=== PATIENT | male | born 1965 | race Caucasian/White ===

== ENCOUNTER 2017-05-03 13:48 | Inpatient (IN) | payer SELFPAY ==
[2017-05-03] VITALS (16 sets, daily range): BP systolic 117–145; BP diastolic 78–98; PULSE 59–85; RESP 14–22; O2SAT 93–100
[~2017-05-03] VITALS: Ht 175.3 cm; Wt 75.3 kg
--- NOTE | 2017-05-03 13:39 | ED.REPORT ---
HPI-Chest Pain 40 and Over Date of Service May 03, 2017 ED Provider: Bobby Ryder Patient is a 52 year old male with a hx of BPH who presents to the ED via EMS complaining of L sided chest pressure onset one hour prior to arrival while playing video games. Patient reports having sporadic shoulder and chest pain for the past month but today it did not get any better. Associated symptoms include SOB, nausea, weakness, shakes, and diaphoresis. He denies vomiting, bleeding, or any other symptoms. He received 8 morphine, 324 aspirin, and 3 nitro en route. Per records, pt has no known drug allergies. He takes Gabapentin for back pain. He has never had chest pain like this before. Nursing Notes Stated Complaint: STEMI Nursing Notes Reviewed: Yes General Time Seen by MD: 13:46 Chief Complaint Chest pressure Hx Obtained From: Patient, EMS Arrived By: Ambulance Sudden in Onset?: Yes Onset Occurred: 1 - 4 hours ago Symptom Duration: Since onset Similar Sx Previous: No Risk Factors )( CAD Risk Stratification SmokingNo Diabetes mellitus, No Hyperlipidemia, No Hypertension, No Known CAD Risk factors reviewed )( TAD Risk Stratification No Hypertension, No Risk factors reviewed )( PE Risk Stratification No , No , No Previous DVT, No Previous PE Risk factors reviewed Past Medical History Past Medical History Chronic back pain BPH Past Surgical History None reported Family History paternal hx heart problems Smoking History Current Every Day Smoker Social History Alcohol Use: Denies alcohol use Drug Use: Denies drug use Ambulatory Status Independent Review of Systems Respiratory: Reports: Shortness of breath Cardiovascular: Reports: Chest pain GI: Reports: Nausea, Denies: Vomiting Skin: Reports Diaphoresis Neurologic: Reports: Shaking, Weakness Complete sys rev & neg: except as marked. Hematologic: Denies Bleeding Physical Exam Initial Vital Signs see nurses notes Initial VS: Reviewed Head / Eyes: Atraumatic, Normocephalic Neurologic: Alert, Oriented, Nonfocal General/Constitutional: Awake, Alert Distress / Hydration: Positive: Distress moderate Respiratory / Chest: Atraumatic, Breath sounds NL, Breath sounds = bilat, No respiratory distress Cardiovascular: Heart rate NL Abdomen: Atraumatic, Soft, Non-tender Neck: Full range of motion, No JVD Lower Extremity / Pelvis / MS: No edema Skin: Warm Color / Condition: Positive: Diaphoresis present Interpretation & Diagnostics ECG Interpretation ECG Interpretation: STEMI rate 64 inferior,lateral, and posterior involvement Time: 13:52 Interpreted by: ED physician ECG Interpretation: 2nd EKG R sided, no ST elevation in V4R Time: 13:52 Interpreted by: ED physician Rhythm Strip Interpretation : Rhythm Strip Interpretation: Nonsustained ventricular tachycardia Rhythm Strip Interpretation: Interpreted by me Re-Eval/Medical Decision Med Decision/Clinical Course Patient care was initiated much prior to arrival as paramedics from an outside town notified us of a probable ST elevation CT. Physician, nursing, and ancillary staff were made available at the bedside prior to arrival via a stat medical call. Cardiology was paged in the field EKG was reviewed by the ER physician prior to patient arrival and confirmed the diagnosis of ST elevation CT. Upon arrival, the patient is brought to a monitored room, IV and boiler blower established. IV heparin is given, confirmatory EKGs are taken. Cardiology is swiftly to the bedside and will take the patient emergently to the [facility]. Time of Eval: 13:50 Re-Evaluation/Progress Note: Discussed plan for admission and medical laboratory scientist. Patient understands and agrees with plan. All questions addressed at this time. Consultation : Referral / Consult Name: Glen Perez MD Consulted With: Cardiology Call Returned at: 13:54 Tile Layer Drainage: Will see patient, Agrees with eval, Agrees with plan, Requested medical laboratory scientist Note: Estephanie visited pt in the ED. Activated medical laboratory scientist. Counseled Regarding: Diagnosis, Need for admission Discharge & Departure Primary Impression: STEMI (ST elevation myocardial infarction) Involved coronary artery: unspecified coronary artery Qualified Code: I21.3 - ST elevation (STEMI) myocardial infarction of unspecified site Additional Impression: Ventricular tachycardia Disposition: ADMITTED TO HOSPITAL Discharge Condition All VS Reviewed: Yes Condition: Critical Crit Care Except Billable Proc Time Spent: 30-74 minutes Services Performed: Patient management by me, Time spent at bedside, Reviewing test results Critical Care Notes: Critical care with ER caveat, the entirety of this patient's including the time prior to arrival was dedicated as one-on-one time. Patient had an ST elevation CT and was at significant risk for cardiogenic shock or decompensation or cardiac arrest. Scribe Attestation Portions of this note were transcribed by Demetrius Colón. I, Dr. Ryder personally performed the history, physical exam and medical decision-making; I reviewed and confirmed the accuracy of the information in the transcribed note. Signed by: Luma Garcia, 05/03/17 Bobby Ryder DO May 03, 2017 13:39 DEMETRIUS COLÓN May 03, 2017 13:53
[~2017-05-03 13:48] MED LIST: Atropine 1 mg/10 mL (Code) Syringe ONE; EPINEPHrine 0.1 mg/mL 10 mL Syringe ONE; Heparin 1,000 Unit/mL 10 mL Inj ONE; Heparin 1,000 Units/500 mL NS Premix IV ONE; Heparin 10,000 Unit/1,000 mL NS Premix IV ONE; Heparin 5,000 Unit/mL Inj ONE; Nitroglycerin 2% 1 Gm Ointment TOPICAL ONE; Nitroglycerin 50,000 mcg/250 mL D5W Premix IV ONE; Phenylephrine/NS-PF 100 mCg/mL 5 mL Syringe IVPUSH ONE; Tirofiban 12.5 mg/250 mL NS Premix IV ONE
[2017-05-03] MEDS ORDERED: Heparin 25K Unit/500mL 0.45 NS 25,000 UNIT in IV Premix 1 EACH IV ONE (13:55)
[2017-05-03] MEDS ORDERED: Heparin 5,000 Unit/mL Inj IVPUSH ONE (13:55)
[2017-05-03] MEDS ORDERED: Heparin 5,000 Unit/mL Inj ONE (13:55)
[2017-05-03] MEDS ORDERED: Amiodarone 150 mg/100 mL D5W Premix IV ONE (13:59)
[2017-05-03] MEDS ORDERED: fentaNYL-PF 50 mCg/mL 2 mL Inj ONE (14:11)
[2017-05-03] MEDS ORDERED: Nitroglycerin 50,000 mcg/250 mL D5W Premix IV ONE (14:13)
--- NOTE | 2017-05-03 14:22 | HP ---
[address] [address] HISTORY AND PHYSICAL PATIENT: BRANDY MANRIQUE : 1965 MR#: [id number] ADMIT: 05/03/2017 JOB ID: [id number] CHIEF COMPLAINT: Chest discomfort. HISTORY: The patient is a 52-year-old male who has been healthy all his life. The patient suddenly developed central chest discomfort about 6/10 one hour ago. It was associated with shortness of INCOMPLETE DICTATION: "Dictation ends here."
[2017-05-03 14:26] LABS: BASOPHILS % (AUTO) 0.3 % (0-3); EOSINOPHILS % (AUTO) 0.4 % (0-5); MONOCYTES % (AUTO) 5.9 % (4-12); Mean Corpuscular Hemoglobin 31.6 pg (27.0-35.0); Mean Corpuscular Volume 93.2 fL (81-100); NEUTROPHILS % (AUTO) 78.7 % (40-74); Platelet Count 231 bil/L (150-400)
[2017-05-03 14:45] LABS: TROPONIN T 0.019 ug/L (0.0-0.011)
[2017-05-03 14:56] LABS: Magnesium 1.5 mg/dL (1.6-2.6)
[2017-05-03] MEDS ORDERED: Protamine Sulfate 10 mg/mL 5 mL Inj ONE (15:02)
[2017-05-03] MEDS ORDERED: Alum-Mag Hydrox-Simeth 30 mL Suspension PO PRN (15:05)
[2017-05-03] MEDS ORDERED: Polyethylene Glycol (PEG) 17 Gm Powder PO PRN (15:05)
[2017-05-03] MEDS ORDERED: 0.9% Sodium Chloride 1,000 ML IV SCH (15:05)
[2017-05-03] MEDS ORDERED: Ondansetron 2 mg/mL 2 mL Inj IVPUSH PRN ×2 (15:05→16:50)
--- NOTE | 2017-05-03 15:47 | DI95 ---
[address] [address] INTERVENTIONAL CARDIAC CATHETERIZATION PATIENT: BRANDY MANRIQUE : 1965 MR#: [id number] ADMIT: 05/03/2017 JOB ID: [id number] DATE OF PROCEDURE: 05/03/2017 PATIENT PROFILE: The patient is a 52-year-old male who is a lifelong smoker. He presented with acute infero-posterior myocardial infarction. PROCEDURE: 1. Retrograde left heart catheterization. 2. Selective coronary angiography. 3. Balloon angioplasty to the major obtuse marginal branch and distal circumflex artery. 4. Left ventricular angiogram. VASCULAR CLOSURE DEVICE: Perclose. METHOD: Retrograde left heart catheterization was performed from the right groin under 1% lidocaine local anesthesia using a 6-Tajik sheath. Selective coronary angiogram was performed in multiple projections, including cranial and caudal angulations with hand injected contrast via JL 3.5 and 3DRC catheters. The JL4 guide could not properly engage the left coronary ostium. A Runthrough wire was placed inside the major obtuse marginal branch. A 2.5 x 15 mm balloon was then used to dilate the distal major obtuse marginal branch lesion. It was inflated up to four atmospheres for 15 seconds. The attention was then turned to the distal circumflex artery. The Runthrough wire was directed into the distal circumflex. The distal lesion was dilated with 2.5 x 15 mm balloon. It was inflated up to two atmospheres for 15 seconds. Final angiogram was obtained. A 6-Tajik angulated pigtail catheter was advanced to the left ventricle and left ventricular angiogram was performed in the 30 degree LEWIS view by injecting contrast at the rate of 10 cc/second for 3 seconds. This catheter was withdrawn. Right femoral angiogram was performed. Following sheath removal, hemostasis was achieved by using a Perclose device. The patient tolerated the procedure well. He was transferred to Intensive Care Unit in stable condition. TOTAL CONTRAST USED: 100 cc. FLUOROSCOPY TIME: 9.6 minutes. RESULTS: 1. Selective coronary angiogram. a. Left main coronary artery is normal. b. The left anterior descending artery is transapical and has minor 10 % to 20% stenosis. c. The codominant circumflex artery is occluded in the very distal portion. The major obtuse marginal branch is occluded in the very distal portion. d. The codominant right coronary artery has minor irregularity of 20% to 30% stenosis in the proximal portion. 2. Balloon angioplasty was performed to the occluded distal obtuse marginal branch lesion to achieve a good angiographic result. There is questionable distal wire perforation. 3. Left ventricular angiogram demonstrates moderate to severely depressed left ventricular systolic function (visually estimated ejection fraction 25% to 30%). The middle one-third of the anterolateral wall is akinetic. The inferior wall is akinetic. The remaining segments contract normally. 4. There is no gradient across the aortic valve on catheter withdrawal. 5. Aortic pressure is 134/80 mmHg. Left ventricular pressure is 135/12 mmHg. 6. Left ventricular end-diastolic pressure is 25 mmHg. CONCLUSION: 1. Occluded distal major obtuse marginal branch and occluded distal circumflex artery. 2. The distal obtuse marginal branch was successfully treated with balloon angioplasty. However there is questionable distal wire perforation. 3. Left ventricular ejection fraction 25% to 30%. 4. LVEDP is 25 mmHg. MTDD
[2017-05-03] MEDS ORDERED: CYCL10TA9 PO (15:52)
[2017-05-03] MEDS ORDERED: GABA-502 PO (15:52)
[2017-05-03] MEDS ORDERED: NAPR500T5 PO (15:52)
[2017-05-03] MEDS ORDERED: ALBU8.5H2 INHALATION (15:54)
--- NOTE | 2017-05-03 16:31 | NUR ---
Pt admitted to CCU from carpenter labor supervisor at approx 1530hrs Pr has a right groin site and had a perclose closure device deployed. Groin site is CDI, distal pulses 2+. Pt states his pain is down to 1/2 to 1 out of 10. "It went from an elephant to a cat on my chest". He has NS at 100cc per hour. VS are stable at this time. Family is here and is updating them on plan of care and the heart cath today.
--- NOTE | 2017-05-03 16:47 | DRSVH ---
[facility] [address] [place] [address] Echocardiogram Report Name: BRANDY MANRIQUE Study Date: 05/03/2017 Hospital Exam Location: [facility] Gender: Other : 1965 Age: 52 yrs BP: 144/87 mmHg Reason For Study: Pericardial Effusion Ordering Physician: Performed By: Gertrude Dennis Interpretation Summary No pericardial effusion. Procedure: A limited 2D echocardiogram was done to assess for pericardial effusion s/p heart catheterization. Pericardium/ Pleura There is no pericardial effusion. Electronically signed by: Glen Griffin on Reading Physician:05/03/2017 04:46 PM
[2017-05-03] MEDS ORDERED: Atropine 1 mg/10 mL (Code) Syringe IVPUSH PRN (16:50)
[2017-05-03] MEDS ORDERED: 0.9% Sodium Chloride 400 ML (4 HRS) IV ONE (16:50)
[2017-05-03] MEDS ORDERED: 0.9% Sodium Chloride 250 ML BOLUS IV PRN (16:50)
[2017-05-03] MEDS ORDERED: Sodium Chloride LOK Flush 10 mL Syringe IVFLUSH PRN (16:50)
[2017-05-03 18:12] LABS: Magnesium 1.8 mg/dL (1.6-2.6)
[2017-05-03] MEDS ORDERED: Potassium Chloride 20 mEq SR Tablet PO ONE (18:25)
--- NOTE | 2017-05-03 19:05 | NUR ---
Cardiac Pt K was 3.3 PO potassium given per repletion protocol. Mg was 1.8. CKMB elevated as expected. Pt is in SR for the most part with short runs of ventricular rhythm self limiting, in the 70's with stable BP. Pt is sleeping on and off and states he pain is almost gone. He has not voided yet. NS continues at 100cc/hr. Pt taking sips of water.
[2017-05-03 22:03] LABS: TROPONIN T 3.24 ug/L (0.0-0.011)
--- NOTE | 2017-05-03 22:49 | NUR ---
Staff Change RN report given to Magdaelno Reed RN during middle of shift. Safe patient handoff performed.
[2017-05-04] VITALS (10 sets, daily range): BP systolic 103–128; BP diastolic 63–87; PULSE 66–103; RESP 18–23; O2SAT 94–98
[2017-05-04 02:51] LABS: BASOPHILS % (AUTO) 0.2 % (0-3); EOSINOPHILS % (AUTO) 0.3 % (0-5); MONOCYTES % (AUTO) 10.2 % (4-12); Mean Corpuscular Volume 93.5 fL (81-100); NEUTROPHILS % (AUTO) 74.4 % (40-74); Platelet Count 212 bil/L (150-400)
[2017-05-04 03:41] LABS: TROPONIN T 5.76 ug/L (0.0-0.011)
--- NOTE | 2017-05-04 07:25 | NUR ---
Telemetry/Pain Pt reports 1/10 discomfort to left lower chest discomfort. He feels that it might be his acid reflux. Maalox given with effectiveness noted. No further complaints of chest discomfort. Telemetry SR in 60s-90s. Multiple episode of short bursts of Vtach. Pt denies any symptoms. Slightly hypertensive with SBP 130s. Pt reports bladder discomfort. He mentioned he has issue initiating to void even in the past while the hospital. Bladder scan >516 ml. Md made aware. Fernandes placed with 900 cc out. Pt c/o left lower/mid chest discomfort again this am. Nitro x2 given. Pt reports that Nitro was helped bring pain down to 1/10. Morphine 2 mg IV given and reports chest pain free. Pt reports chronic lower back and upper back pain as well with relief from Morphine. Right groin site CDI without any hematoma or bruising.
--- NOTE | 2017-05-04 08:41 | HP ---
[address] [address] HISTORY AND PHYSICAL PATIENT: BRANDY MANRIQUE : 1965 MR#: [id number] ADMIT: 05/03/2017 JOB ID: [id number] DATE OF ADMISSION: 05/03/2017 CHIEF COMPLAINT: Chest discomfort. HISTORY: The patient is a 52-year-old male who has been healthy all his life. He is a lifelong smoker. The patient suddenly developed chest discomfort approximately 1 hour before his arrival to the hospital. It was central, severe. He rated it about 6/10. It was associated with shortness of breath, diaphoresis and nausea. It did not radiate. EKG showed inferior ST-segment elevation. STEMI protocol was activated. PAST MEDICAL HISTORY: Chronic back pain. He denied diabetes, hypertension or hypercholesterolemia. CURRENT MEDICATIONS: None. ALLERGIES: No known allergies. SOCIAL HISTORY: He started smoking when he was 16 years old. He smokes an average of one pack per day. Occasional alcohol. He denies any drugs. FAMILY HISTORY: His father had heart condition. REVIEW OF SYSTEMS: Unobtainable due to urgency of clinical situation. PHYSICAL EXAMINATION: Reveals a middle-aged male appearing in acute distress. Temperature is 36.4. Blood pressure is 142/72. Pulse 78. Skin is warm and dry. Head and face have normal configuration. Anicteric sclerae. Moist mucosa. Neck supple. No jugular venous distention or carotid bruits. Chest: Normal expansion. Lungs are clear to auscultation. Heart: The first and second heart sounds normal. No gallop or murmur. Abdomen: Soft, nontender and without hepatosplenomegaly. Back: No CVA tenderness. No clubbing, cyanosis, or edema. Peripheral pulses are equal bilaterally. Neurologic: Grossly intact. EKG shows normal sinus rhythm. Inferior ST elevation with anterior ST depression. IMPRESSION: 1. Acute inferoposterior myocardial infarction. 2. Nicotine addiction. 3. Unknown lipid status. PLAN: The patient will undergo emergent coronary angiogram and possible percutaneous intervention. The risks and procedure have been explained to the patient. He understands and agrees to proceed with the procedure. He was advised to stop smoking. JAMAAL
--- NOTE | 2017-05-04 09:17 | NUR ---
Social Work: Initial Assessment D: Per EMR review, pt is a 52 year old male admitted for STEMI. Pt is Self Pay and confirms he has no insurance. Pt does not have a PCP and does not want a residency clinic appointment made for him at this time. LACEY is his , Gabby Mcwilliams [phone]. Advanced directives information provided. Readmit score is low, 0/8. TRANSITION SPECIALIST met with the patient and his at bedside. Sw role explained, contact info and discharge planning checklist provided. See initial assessment. Pt lives in [place] with his . Pt is I at baseline with ambulation and uses a cane. The pt does not drive and has never had HH or skilled rehab. Pt states that he lives in a double wide mobile home with 3 steps to enter. Pt and are concerned about the pt's insurance status and states that he only has L&I for an existing back injury. They are interested in speaking with [facility] to screen for Medicaid. TRANSITION SPECIALIST has alerted [facility] of their request to meet with them. A: Pt who is I at baseline and lives with his . P: Anticipate pt to discharge home via POV and no identified sw needs. TRANSITION SPECIALIST to continue to follow to assess for discharge needs. MONCHO Ascencio Addendum: 05/04/17 at 0925 by JEREMY MATHEWS SS Amended: Links added.
[2017-05-04] MEDS ORDERED: Heparin 5,000 Unit/mL Inj IVPUSH ONE (11:30)
--- NOTE | 2017-05-04 12:02 | PROG NOTE ---
[address] [address] PROGRESS NOTE PATIENT: BRANDY MANRIQUE : 1965 MR#: [id number] ADMIT: 05/03/2017 JOB ID: [id number] DATE: 05/04/2017 SUBJECTIVE: The patient was admitted yesterday afternoon with an acute inferoposterolateral MD. Coronary angiography by Dr. Perez revealed what appeared to be embolic occlusion of two distal branches of the left circumflex artery consistent with his acute inferoposterolateral MD. He did not show evidence of significant lesions in his LAD or right coronary artery. Dr. Perez was able to get a wire down the more proximal circumflex branch distally, but there was some staining suggesting the possibility of perforation though this is probably staining of the thrombus intracoronary. There was probably only ALINA grade 1 flow distally following the intervention and no stent was placed. Post procedure, echocardiogram did not show any evidence of pericardial effusion. He was not able to get past the thrombus in the distal branch of the circumflex. This gentleman was brought to the floor. He really has not had too much difficulty overnight, although tells me this morning that around four o'clock, he had some recurrent angina-like chest discomfort that was more mild then his presenting symptoms. These were not associated with significant dyspnea or diaphoresis or nausea. He states that he is feeling quite weak and fatigued and complains of some chronic lumbar back discomfort. He takes gabapentin and muscle relaxers as well as naproxen for his back discomfort at home and states that they do not provide him much relief. He also smokes about a pack and half a day and is aware of nicotine craving this morning. OBJECTIVE: Examination today is otherwise unremarkable. There is no significant problem with the right groin site. Distal pulses are okay. I have reviewed the fact that this appears to be a embolic event. On reviewing his history he states that for a long time he has had recurrent episodes of exertion related rapid palpitations that seemed to come on suddenly with exertion associated with his shortness of breath and then resolves fairly suddenly once he stops doing his activities. He states this happens not infrequently and has been going on for years. He denies any history of venous thrombosis and has never had any other cardiovascular events. LABORATORY: Notable for moderate leukocytosis with a white count of 18.9 thousand. His platelet count is normal as are his hemoglobin and hematocrit. Baseline coagulation numbers were not obtained. He has mild hyperglycemia with a hemoglobin A1c of 5.9 and a blood sugar of 124. Renal function and electrolytes are normal. A troponin level is increasing up to 5.76. His total cholesterol 169 with an LDL cholesterol of 113, HDL cholesterol 33. TSH level normal. IMPRESSION: The patient presents with what appears to be arterial embolus to the distal branches of the circumflex. He describes a history that suggests the possibility of exertion related atrial fibrillation which could be a culprit. He does not have a history of venous thrombosis or any other previous arterial emboli clinically, but should be evaluated for hypercoagulable disorder. PLAN: Will schedule this patient to have hypercoagulable panel. Once that is drawn, I will ask the nurses to start a cardiac heparin protocol. Will get a baseline echocardiogram today and begin to ambulate him to see if he has recurrent anginal symptoms. The family understands that it will take a day or two to get things sorted out. This gentleman has no insurance, and I know community mental health social worker was helping with that issue.
[2017-05-04] MEDS: Heparin 25K Unit/500mL 0.45 NS 25,000 UNIT in IV Premix 1 EACH IV SCH ×2 (12:22→14:39)
[2017-05-04] MEDS: Codeine-APAP 30-300 mg Tablet PO PRN ×3 (12:23→18:58)
--- NOTE | 2017-05-04 15:33 | DRSVH ---
[facility] [address] [place] [address] Echocardiogram Report Name: BRANDY MANRIQUE Study Date: 05/04/2017 Height: 69 in Hospital Exam Location: [facility] Weight: 167 lb Gender: Other BSA: 1.9 m2 : 1965 Age: 52 yrs BP: 125/83 mmHg Ordering Physician: Performed By: Cherry Garcia Interpretation Summary The ejection fraction is estimated to be 45-50%. There is severe hypokinesis of the majority of the posterior wall and proximal half of the laterial wall. The inferior wall shows normal contractility. The right ventricle is normal in size, thickness and function. The left atrial size is normal. The IVC is of normal diameter and collapses less than 50% with a sniff. This suggests a right atrial pressure of 8 mm Hg. There is no pericardial effusion. No other echocardiographic abnormalities seen. Procedure: A two-dimensional transthoracic echocardiogram with color flow and Doppler was performed. The study quality was technically good. Comparison is made with the echocardiogram of 05/03/17. The patient was in normal sinus rhythm during the exam. Left Ventricle: The left ventricle is normal in size. The ejection fraction is estimated to be 45-50%. There is severe hypokinesis of the majority of the posterior wall and proximal half of the laterial wall. The inferior wall shows normal contractility. Right Ventricle: The right ventricle is normal in size, thickness and function. Atria: The left atrial size is normal. Right atrial size is normal. There is no Doppler evidence for an interatrial shunt. Mitral Valve: The mitral valve is normal. There is trace mitral regurgitation. Aortic Valve: The aortic valve is normal in structure and function. No aortic regurgitation is present. Tricuspid Valve: The tricuspid valve is normal. There is a trace or physiologic amount of tricuspid regurgitation. Pulmonary artery pressures cannot be estimated because of the lack of a measurable TR jet velocity. Pulmonic Valve: The pulmonic valve leaflets are thin and pliable; valve motion is normal. There is a trace or physiologic amount of pulmonic regurgitation. Great Vessels: The aortic root is moderately dilated. The ascending aorta is normal in size. The aortic arch is normal in size. The pulmonary is not well visualized. The IVC is of normal diameter and collapses less than 50% with a sniff. This suggests a right atrial pressure of 8 mm Hg. Pericardium/ Pleura There is no pericardial effusion. There is no pleural effusion. MMode/2D Measurements & Calculations LVIDd: 5.6 cm RA long axis: 3.9 cm LVOT diam: 2.8 cm LVIDs: 4.6 cm LA A2 area: 17.8 cm AoV Opening FS: 18.1 % LA A4 area: 17.1 cm RA area: 14.6 cm EPSS: 1.6 cm LA length (vol) RA vol: 46.6 ml Ao root diam IVSd: 1.2 cm RA : 24.4 ml/m2 LVPWd: 1.0 cm LA vol: 60.8 ml asc Aorta Diam LA vol index Ao Arch Diam (Prox Trans): 3.0 cm IVC diam: 1.9 cm EDV(MOD-sp2) LV damico. diameter/BSA LV sys. diameter/BSA RVD1 (basal) (cm/m^2): 2.9 (cm/m^2): 2.4 : 4.0 cm ESV(MOD-sp2) EF(MOD-sp2) TAPSE: 3.1 cm Doppler Measurements & Calculations Ao V2 max MV E max devendra MV E/A: 0.71 PA V2 max : 101.5 cm/sec : 44.2 cm/sec Med Peak E' Devendra : 79.2 cm/sec Ao max PG MV A max devendra PA mean PG : 4.1 mmHg : 62.4 cm/sec E/E' med: 6.5 Ao mean PG MV P1/2t: 34.0 msec Lat Peak E' Devendra PA Accel Time : 0.11 sec LVOT Max Devendra E/E' lat: 6.1 : 62.4 cm/sec E/e' average: 6.3 TRENT(I,D): 3.8 cm sev ratio MV dec time MV P1/2t max devendra Ao V2 mean LV V1 max PG : 0.12 sec : 77.2 cm/sec MVA(P1/2t): 6.5 cm2 Ao V2 VTI: 18.4 cm LV V1 VTI TRENT(V,D): 3.9 cm2 : 10.9 cm PA V2 mean TRENT indexed to BSA : 60.9 cm/sec (cm^2/m^2): 2.0 Reading Physician:03:32 PM
--- NOTE | 2017-05-04 17:38 | NUR ---
Pain/Activity/Heparin Patient a/o x 4, c/o left neck,throat and ear pain that radiated to the chest 5/10. Pain increased with deep breath. Dr Nevarez at bedside EKG done and Morphine IVP x 2 given. Stat Echo done. Patient resting intermittently after meds. Tylenol #3 given for back pain with good effect. CXR done this afternoon. Patient sitting and standing at bedside this afternoon, gerardo fair. Right groin site c/d/i. Pedal pulses palpable. VSS, tele SR-ST 70-100's. Heparin gtt started per Cardiology orders. Will cont to monitor.
[2017-05-04] MEDS ORDERED: Furosemide 10 mg/mL 2 mL Inj IVPUSH ONE (18:05)
[2017-05-04] MEDS: Heparin 5,000 Unit/mL Inj IVPUSH PRN (18:09)
--- NOTE | 2017-05-04 21:10 | DRSVH ---
PROCEDURE: X-RAY CHEST ONE VIEW, PORTABLE ([id number]) INDICATIONS: sob, pain TECHNIQUE: One view of the chest was acquired. COMPARISON: None. FINDINGS: Surgical changes and devices: None. Lungs and pleura: No pleural effusions or pneumothorax. Subtle opacity is noted in the lung bases bi laterally right greater than left which could represent atelectasis versus early pneumonia. Mediastinum: Mediastinal contours appear normal. Heart size is normal. Bones and chest wall: No suspicious bony lesions. Overlying soft tissues appear unremarkable. IMPRESSION: Subtle bibasilar opacities compatible atelectasis versus early pneumonia. Please correl ate with clinical and laboratory data. Dictated by: Munira Murrieta MD, PhD on 05/04/2017 at 21:08 Approved by: Munira Murrieta MD, PhD on 05/04/2017 at 21:09
[2017-05-05] VITALS (9 sets, daily range): BP systolic 95–106; BP diastolic 59–91; PULSE 65–82; RESP 14–20; O2SAT 94–97
[2017-05-05] MEDS: Codeine-APAP 30-300 mg Tablet PO PRN (03:51)
--- NOTE | 2017-05-05 06:14 | NUR ---
Pain Alert and oriented x3. ALCANTARA. Tylenol # 3 effective for headache and neck discomfort. No c/o chest pain/discomfort. Telemetry SR 70s-90s. SBP in high 90s-low 100s. Lasix 20 mg IV given during shift report. UOP per Fernandes about 2470cc for tonight. Pt requests to keep Fernandes tonight and remove during the day. Pt tolerated up in chair during the evening without any c/o chest pain/discomfort. Heparin gtt per cardiac protocol. Will continue to monitor.
[2017-05-05] MEDS: Heparin 5,000 Unit/mL Inj IVPUSH PRN ×2 (06:28→12:57)
--- NOTE | 2017-05-05 13:34 | PROG NOTE ---
[address] [address] PROGRESS NOTE PATIENT: BRANDY MANRIQUE : 1965 MR#: [id number] ADMIT: 05/03/2017 JOB ID: [id number] DATE: 05/05/2017 SUBJECTIVE: The patient is doing much better today. He has no complaints of dyspnea or recurrent chest discomfort other than for some slight left neck pleuritic discomfort when he takes in a deep breath. He has been taken off the hard wire monitor and placed on telemetry. His Fernandes catheter that he had in overnight is removed and he diuresed fairly briskly after 20 mg of IV Lasix that I gave him because of mild pulmonary congestion. His vital signs today show heart rates in the 60s and 70s. His blood pressure in the 95-110 range. He is oxygenating well on room air. The rest of his examination is unremarkable. LABORATORY WORK: Is notable for normal hemoglobin and hematocrit. Normal renal function. His potassium level is normal. Hypercoagulation workup, most of it is pending. His FRANCES screen is normal. His C3 and C4 are normal. The rest of the tests are pending. IMPRESSION: I think the patient may have paroxysmal atrial fibrillation by history. He clearly had an embolic event with small clots to the distal ramus and two branches of the circumflex with the resulting posterior scar. His pleuritic discomfort I think simply represents a transmural infarction. The echocardiogram performed yesterday shows an ejection fraction in the range of 45%-50% with hypokinesis of most of the posterior wall and the proximal half of the lateral wall. Right ventricle looks normal. The IVC suggests an atrial pressure of 8. No pericardial effusion. PLAN: The patient should be ambulated today. I would like to watch him until tomorrow at which point I think he could be discharged home. His discharge medications would include p perhaps atenolol 50 mg a day. In addition, for ease, instead of a b.i.d. beta-jorge, he could take aspirin until he is anticoagulated with Coumadin. I am going to have the pharmacist initiate the Coumadin today and will want him to followup at our Coumadin clinic next week. He will need Lovenox injections for bridging until his Coumadin level is therapeutic. In addition to his aspirin beta jorge and Coumadin anticoagulation, he will go home on 40 mg of atorvastatin daily as well. I would like this gentleman to come back and see me in my office in 3-4 weeks. He should followup with our Coumadin Clinic as well.
--- NOTE | 2017-05-05 14:35 | NUR ---
Hypotension Pt's BP was 89/74 HR72 at 1430 when checking to give 25mg Metoprolol. Withheld for now and paged to ask for parameters. Addendum: 05/05/17 at 1457 by JOEL MAO RN called and changed Metoprolol 25mg Q6 to 25 mg Metoprolol BID. Changes to be made now.
[2017-05-06] MEDS: Heparin 5,000 Unit/mL Inj IVPUSH PRN ×3 (01:43→12:08)
[2017-05-06 04:39] VITALS: BP 95/59; PULSE 66; RESP 20; O2SAT 94
[2017-05-06 04:40] VITALS: PULSE 64
--- NOTE | 2017-05-06 06:20 | NUR ---
BP/oxygen/pain/heparin gtt pts BP slightly low but remained stable with lopressor 25mg PO changed to BID, pt on RA through the whole night SpO2 mid 90s, pt ambulated x3 this shift tolerating well, pt denies any CP or throat pain, PTT low x2 1000units bolus given x2 new rate 1400units/hr. tele SR
[2017-05-06 07:05] VITALS: PULSE 68
[2017-05-06 07:44] VITALS: BP 101/68; PULSE 67; RESP 16; O2SAT 97
[2017-05-06 11:42] VITALS: BP 101/66; PULSE 66; RESP 18; O2SAT 95
[2017-05-06 14:09] LABS: Perinuclear (P-ANCA) <1:20 titer (Neg:<1:20)
[2017-05-06 16:09] VITALS: BP 97/66; PULSE 63; RESP 18; O2SAT 97
--- NOTE | 2017-05-06 16:18 | PCM.DIMED ---
Discharge Instructions Date of Service May 06, 2017 Dates of Hospitalization May 03, 2017 at 15:08 Discharge Diagnosis Discharge Diagnosis Myocardial infarction suspected from embolic source Diet Discharge Diet: Heart Healthy Activity Discharge Activity: Other (do not lift more than 5 pounds for the next one week.) Call your provider Call your provider for: Chest pain Patient Instructions Follow-up with PCP in: 1 week Provider: Marko Nevarez MD Follow-up in: 3 weeks Mohamud Tidwell MD May 06, 2017 16:18
[2017-05-06] MEDS ORDERED: METO25TA6 PO (16:20)
[2017-05-06] MEDS ORDERED: ATOR40TA69 PO (16:20)
[2017-05-06] MEDS ORDERED: ASPI81TA3 PO (16:20)
[2017-05-06] MEDS ORDERED: NICO1PAT6 TOPICAL (16:20)
[2017-05-06] MEDS ORDERED: APIX5TAB PO (16:20)
--- NOTE | 2017-05-06 16:32 | PCM.DC.CAR ---
Discharge Summary Date of Service May 06, 2017 Date of Hospital Admission May 03, 2017 at 15:08 Date of Discharge: May 06, 2017 Providers: Admitting Physician: Glen Perez MD Primary Care Physician: Adwoa Attending Physician: Glen Perez MD Diagnosis at Time of Discharge Myocardial infarction suspected from embolic source Problems: Echo: Echo 05/03/2017 The ejection fraction is estimated to be 45-50%. There is severe hypokinesis of the majority of the posterior wall and proximal half of the laterial wall. The inferior wall shows normal contractility. The right ventricle is normal in size, thickness and function. The left atrial size is normal. The IVC is of normal diameter and collapses less than 50% with a sniff. This suggests a right atrial pressure of 8 mm Hg. There is no pericardial effusion. No other echocardiographic abnormalities seen. Invasive Procedures: Cath 05/03/2017: 1. Selective coronary angiogram. a. Left main coronary artery is normal. b. The left anterior descending artery is transapical and has minor 10 % to 20% stenosis. c. The codominant circumflex artery is occluded in the very distal portion. The major obtuse marginal branch is occluded in the very distal portion. d. The codominant right coronary artery has minor irregularity of 20% to 30% stenosis in the proximal portion. 2. Balloon angioplasty was performed to the occluded distal obtuse marginal branch lesion to achieve a good angiographic result. There is questionable distal wire perforation. 3. Left ventricular angiogram demonstrates moderate to severely depressed left ventricular systolic function (visually estimated ejection fraction 25% to 30%). The middle one-third of the anterolateral wall is akinetic. The inferior wall is akinetic. The remaining segments contract normally. 4. There is no gradient across the aortic valve on catheter withdrawal. 5. Aortic pressure is 134/80 mmHg. Left ventricular pressure is 135/12 mmHg. 6. Left ventricular end-diastolic pressure is 25 mmHg. CONCLUSION: 1. Occluded distal major obtuse marginal branch and occluded distal circumflex artery. 2. The distal obtuse marginal branch was successfully treated with balloon angioplasty. However there is questionable distal wire perforation. 3. Left ventricular ejection fraction 25% to 30%. 4. LVEDP is 25 mmHg. Brief History and Physical: 52-year-old man history of smoking admitted with acute myocardial infarction. He underwent coronary angiography that showed embolism to multiple epicardial coronary arteries. Hospital Course: During the hospital course, patient had an echocardiogram that showed mildly reduced ejection fraction at 45-50%. He gradually recovered and had no symptoms prior to discharge. He was able to walk 3 times around the hallway without any difficulty. I spent time with the patient to educate him about importance of smoking cessation. He will work on it. He underwent laboratory evaluation for embolic source as below. Labs 05/04/2017: FRANCES negative, c-ANCA negative, complement C3 and C4 normal, RPR nonreactive, anticardiolipin antibodies pending, factor II DNA pending The complicating feature of this patient's case is that he has no health care insurance. He needs to be on lifelong anticoagulation along with at least one month of aspirin therapy. I gave him a prescription of eliquis 5mg bid for one month with 30 day coupon card and he will work on getting insurance within the next month. He can be switched to warfarin or any other direct anticoagulant depending on his health insurance coverage. Discharge Medications Apixaban (Eliquis) 5 Mg Tablet 5 MG PO BID Aspirin Chew (Aspirin Chew) 81 Mg Chew 162 MG PO DAILY Atorvastatin Calcium (Atorvastatin Calcium) 40 Mg Tablet 40 MG PO HS Gabapentin (Gabapentin) 300 Mg Capsule 300 MG PO BID Metoprolol Tartrate (Metoprolol Tartrate) 25 Mg Tablet 25 MG PO BID Nicotine 21 mg/24 hr Patch (Nicotine 21 mg/24 hr Patch) 1 Each Patch.td24 1 PATCH TOPICAL DAILY As needed Albuterol HFA (Proair HFA) 8.5 Gm Hfa.aer.ad 2 PUFFS INHALATION Q4H PRN PRN For Shortness of Breath Cyclobenzaprine (Cyclobenzaprine) 10 Mg Tablet 10 MG PO HS PRN PRN For Pain Followup Plan Discharge Diet: Heart Healthy Discharge Activity: Other (do not lift more than 5 pounds for the next one week.) Mohamud Tidwell MD May 06, 2017 16:32
--- NOTE | 2017-05-06 17:37 | NUR ---
Social Work Note: Discharge Data& Assessment: Pt was discussed in multidisciplinary rounds, per pt is medically ready to discharge home via POV. Prabhjot Mcwilliams is a 52 year old male admitted on 05/03/2017 for STEMI. Per MD pt is medically improved and ready for discharge. Pt is independent with self care during this hospitalization. No other MD orders identified. USABILITY STRATEGIST met with pt at bedside to provide SHIBA information and financial services education consultant application. Pt is transporting him home this evening. Pt denies any other needs. No other discharge needs identified. Plan: Per pt is medically ready to discharge home via POV. Pt denies any other needs. No other discharge needs identified. MONCHO Jo
--- NOTE | 2017-05-06 18:42 | NUR ---
Discharge Pt left with at 1830 via private car. Pt A&Ox3, vitals stable, and walked out. All discharge instructions gone over including post heart cath instructions. New medication information given along with prescriptions. Changes in medications gone over and understood. All questions answered. IV and tele removed. Eliquis given before Pt left. All belongings taken with.
[2017-05-09 14:08] LABS: Protein C-Functional 129 % (73-180); dRVVT 39.9 sec (0.0-47.0)
== END 2017-05-06 18:30 | disposition home or self-care (01) | DRG 251 ==
LOC: SED 13:48 → SOUO 14:13 → CCU 15:08 → PCC 05-05 12:46
PROVIDERS: ADMIT Internal Medicine Interventional Cardiology; ATTEND Internal Medicine Interventional Cardiology
PROC: 02713ZZ Dilation of Coronary Artery, Two Arteries, Percutaneous Approach (ICD-10-PCS; principal; 2017-05-03)
PROC: 4A023N7 Measurement of Cardiac Sampling and Pressure, Left Heart, Percutaneous Approach (ICD-10-PCS; 2017-05-03)
PROC: B2111ZZ Fluoroscopy of Multiple Coronary Arteries using Low Osmolar Contrast (ICD-10-PCS; 2017-05-03)
PROC: B2151ZZ Fluoroscopy of Left Heart using Low Osmolar Contrast (ICD-10-PCS; 2017-05-03)
DX: I21.29 ST elevation (STEMI) myocardial infarction involving other sites (principal); F17.210 Nicotine dependence, cigarettes, uncomplicated; I25.10 Atherosclerotic heart disease of native coronary artery without angina pectoris